=== PATIENT | male | born 1980 | race Caucasian/White ===

== ENCOUNTER 2021-12-11 08:03 | Emergency (ER) | payer BC, SELFPAY ==
[2021-12-11 08:05] VITALS: BP 167/97; PULSE 71; RESP 14; TEMP 36.9; O2SAT 100; BMI 29.9
--- NOTE | 2021-12-11 08:27 | EDS_ITS ---
HPI History of Present Illness Chief Complaint: General Illness Informant: patient Onset/Context/Timing Onset: Today Context: - (Awoke with symptoms) Timing: Continuous Quality: Loss of taste and smell Current Severity: Moderate Maximum Severity: Moderate Worsened by: Nothing Relieved by: Nothing Associated Symptoms Associated Symptoms: Panicked and felt short of breath transiently earlier Narrative Narrative: Patient presents with loss of taste and smell. He is unvaccinated against Covid. He is asymptomatic otherwise, but admits that 5 days ago, he had fevers, chills, headaches, myalgias, malaise. That lasted a couple days and resolved. He is healthy otherwise. PFSH PFS Medical History no medical history no medical history Home Medications cephalexin 500 mg PO Q6 #28 capsule 06/19/16 [Rx Last Taken Unknown] hydrocodone-acetaminophen 1 - 2 tab PO Q4H PRN PRN #20 tablet 06/19/16 [Rx Last Taken Unknown] Allergy/AdvReac Type Severity Reaction Status Date / Time No Known Allergies Allergy Verified 12/11/21 08:05 Social History Smoking Status: Current every day smoker ROS ROS ED Constitutional Constitutional ED: Denies chills or fever(s) Eyes Eyes: Denies change in vision or diplopia ENT ENT ED: Reports loss taste/smell; Denies rhinorrhea or sore throat Cardiovascular Cardiovascular: Denies chest pain or palpitations Respiratory/Chest Respiratory/Chest: Denies cough or dyspnea Gastrointestinal Gastrointestinal: Denies abdominal pain, diarrhea, nausea or vomiting Genitourinary Genitourinary ED: Denies dysuria or hematuria Musculoskeletal Musculoskeletal: Denies back pain or neck pain Integumentary Denies abscess or rash Neurologic Neurologic: Denies headache(s), paresthesias or weakness Psychiatric Psychiatric: Denies anxiety or suicidal thoughts EXAM Physical Exam Const Vital Signs: 12/11/21 08:05 Temperature 98.4 F Temperature Source Temporal Pulse Rate 71 Respiratory Rate 14 Blood Pressure 167/97 H Blood Pressure Mean 120 Pulse Ox 100 Oxygen Delivery Method Room Air Positive well nourished and well developed General Appearance ED: well developed and NAD HEENT Reports moist mucous membranes normocephalic and atraumatic Eyes PERRL and EOMs intact bilaterally Neck full ROM and supple Resp normal respiratory effort and clear to auscultation bilaterally Cardio regular rate, regular rhythm and no murmurs GI non-tender and non-distended Auscultation: normoactive bowel sounds Palpation: soft Back/Spine no CVA tenderness General Back: other FROM Extremity normal to inspection General Extremety ED: Negative for edema, pulses abnormal or tenderness General Extremity: Negative for edema or pulses abnormal Neuro oriented x3, CN's II-XII intact bilaterally and no sensory deficits noted Sensorium / Orientation: awake and alert Motor Exam: strength 5/5 throughout Skin no rashes or lesions noted and no wounds MDM MDM MDM Narrative Medical decision making narrative: Clinically this is all consistent with COVID- 19. The omicron variant is dominant right now, and has a higher likelihood of false negative rapid antigen testing. That was undergone here in the emergency department. It is positive. Patient was reassured, his oxygen levels are 100%, he does not have dyspnea with exertion. Given appropriate discharge instructions and reasons to return. Of note the patient's BMI is 30. This is a risk factor for worsening pulmonary involvement. Right now there is a shortage of the monoclonal antibody infusion sotrovimab and it is being allocated to people with higher risk than the general population, and this patient does not meet this criteria right now. Discharge Plan Triage Chief Complaint: General Illness ED Provider: Duncan Castillo Dx/Rx/DC Orders Clinical Impression: COVID-19 Instructions: Coronavirus Disease 2019 (COVID-19): Caring for Yourself or Others Prescriptions: No Action hydrocodone-acetaminophen 1 TABLET tablet 1 - 2 tab PO Q4H PRN PRN (Reason: Pain) Qty: 20 RF: 0 cephalexin 500 MG capsule 500 mg PO Q6 Qty: 28 RF: 0 Primary Care Provider: Donal Freeman Referrals: Jack De La O MD [NON-STAFF] - As Needed Activity Restrictions/Additional Instructions: Try to get a home portable pulse oximeter and closely watch your oxygen levels periodically. If you stay below 90% for more than a minute or so, and/or you are feeling like your breathing is getting worse, return to the emergency department for further evaluation. Disposition Disposition: Home, Self Care
== END 2021-12-11 09:24 | disposition home or self-care (01) ==
LOC: ED 08:47
PROVIDERS: Emergency Provider Emergency Medicine; PCP Family Medicine; Visit Provider Emergency Medicine
DX: U07.1 COVID-19 (principal); F17.200 Nicotine dependence, unspecified, uncomplicated
CPT/HCPCS: 87426; 99282

== ENCOUNTER → 2022-07-01 | Outpatient (CLI) | payer BC, SELFPAY ==
[2022-07-01 11:31] LABS: Free T3 3.1 pg/mL (2.18-3.98); T4 Free Direct 0.94 ng/dL (0.76-1.46)
[2022-07-02 17:07] LABS: Thyroid Peroxidase AB < 8 IU/mL (0-34)
[2022-07-03 14:58] LABS: Thyroglobulin Antibody < 1.0 IU/mL (0.0-0.9)
== END | disposition home or self-care (01) ==
LOC: LAB 10:09
PROVIDERS: PCP Family Medicine
DX: R79.89 Other specified abnormal findings of blood chemistry (principal)
CPT/HCPCS: 36415; 84439; 84481; 86376; 86800

== ENCOUNTER → 2023-08-04 | Outpatient (CLI) | payer BC, SELFPAY ==
[2023-08-04 10:50] LABS: Cholesterol 126 mg/dL (200); High Density Lipoprotein 39 mg/dL; Triglycerides 167 mg/dL; Very Low Density Lipoprotein 33 mg/dL (5-40)
== END | disposition home or self-care (01) ==
LOC: LAB 09:40
PROVIDERS: PCP Family Medicine
DX: E78.5 Hyperlipidemia, unspecified (principal); I10 Essential (primary) hypertension; I25.10 Atherosclerotic heart disease of native coronary artery without angina pectoris
CPT/HCPCS: 36415; 80061

== ENCOUNTER 2024-12-28 00:56 | Inpatient (IN) | payer BC, SELFPAY ==
[2024-12-28] VITALS (24 sets, daily range): BP systolic 103–176; BP diastolic 68–106; PULSE 55–92; RESP 12–18; TEMP 36.4–36.9; O2SAT 97–100; BMI 34.2
--- NOTE | 2024-12-28 01:24 | CT_ITS ---
PROCEDURE: ABDOMEN/PELVIS WITHOUT CONT REASON FOR EXAM: Flank pain. History of stones. Nausea, vomiting. TECHNIQUE: Abdomen and pelvis CT without intravenous contrast. 2D sagittal and coronal reformatted images were provided. COMPARISON: None. FINDINGS: Lung bases are clear. Coronary artery calcifications are present. There is diffuse hepatic steatosis. Gallbladder, spleen, pancreas, biliary system, and adrenal glands are unremarkable within the limits of a noncontrast exam. Abdominal aorta demonstrates a normal caliber. There is a 6.5 x 5 x 5.5 mm obstructing stone in the proximal right ureter resulting in mild right-sided proximal hydroureter and mild to moderate right-sided hydronephrosis. There is right perinephric and right periureteral stranding. No left renal or ureteral stones are identified. Urinary bladder is smoothly contoured. No colonic obstruction or pericolonic inflammatory changes are present. Appendix is unremarkable. Small bowel demonstrates a normal caliber. No free air or free fluid is identified. There is a small fat containing umbilical hernia. Evaluation of the osseous structures demonstrates no acute findings. Mild degenerative changes are present. CT/Abdomen/Pelvis without Cont IMPRESSION: 1. Obstructing stone in the proximal right ureter measuring 6.5 mm resulting in [id number] right-sided hydronephrosis and mild proximal hydroureter with right perinephric and periureteral stranding. 2. Hepatic steatosis. One or more dose reduction techniques were used (e.g., Automated exposure contr ol, adjustment of the mA and/or kV according to patient size, use of iterative reconstruction technique). Reading Location: [facility]
[2024-12-28] MEDS: Ketorolac 30 MG/ML Syringe IV (01:31)
[2024-12-28] MEDS: Ondansetron 4 MG/2 ML Vial IV ×2 (01:31→08:19)
[2024-12-28] MEDS: 0.9% Normal Saline (1000mL) 1,000 ML 999 ML IV (01:31)
--- NOTE | 2024-12-28 01:46 | EDS_ITS ---
HPI History of Present Illness Chief Complaint: Flank Pain Narrative Narrative: Patient is a 44-year-old male with past medical history of CAD status post stents, NC, hyperlipidemia, kidney stones who presents to the emergency department the chief complaint of right sided back pain and concern for kidney stone. States that has been going on for a while however has been progressively worsening prompting him to come here for the valuation management. He rates his pain 8 out of 10. Patient denies any history of smoking, drug use, alcohol use. Patient states that this feels like a kidney stone. [facility] Medical History Hyperlipidemia Myocardial infarct Home Medications ?Medication ?Instructions ?Recorded ?Last Taken ?Type aspirin 81 mg chewable tablet 1 tab PO DAILY 12/28/24 Unknown History atorvastatin 80 mg tablet 80 mg PO DAILY 12/28/24 Unkn own History losartan 25 mg tablet 12.5 mg PO DAILY 12/28/24 Un known History Allergy/AdvReac Type Severity Reaction Status Date / Time No Known Allergies Allergy Verified 12/28/24 00:58 Surgical History Stented coronary artery Social History Smoking Status: Former smoker ROS ROS ED ROS Narrative Constitutional: Denies any fevers, chills, headaches Eyes: Denies change in vision double vision blurry vision Cardiovascular: Denies chest pain or palpitations Respiratory: Denies coughing wheezing shortness of breath Abdomen: Denies abdominal pain nausea vomit diarrhea : Denies any painful urination, hematuria, polyuria Neurological: Denies any numbness, weakness, tingling Musculoskeletal: Complains of right sided back pain as noted above Skin: Denies any rashes or lesions EXAM Physical Exam Narrative Exam Narrative: General: Patient lying in bed rest comfortably did not appear to be in acute distress Head: Atraumatic, normocephalic Eyes: PERRL bilaterally, EOMI bilaterally, no conjunctival injection noted Neck: Soft, supple, trachea midline Cardiovascular: Regular rate and rhythm no murmurs gallops rubs noted Respiratory: Clear to auscultation bilaterally no rales rhonchi or wheezes noted Abdomen: Soft, nondistended, no tenderness to palpation, bowel sounds present x 4 Musculoskeletal: No CVA tenderness noted on exam no tenderness palpation midline of thoracic lumbar spine Extremities: +5/5 strength noted in the bilateral upper and lower extremities, radial pulses +2/4 in the bilateral extremities Neurological: Patient following commands knew that he was at [facility] there is 2024 Skin: Warm, dry, intact no rashes or lesions noted Const Vital Signs: 12/28/24 00:57 12/28/24 00:59 12/28/24 01:59 Temperature 98.5 F 98.5 F 98.5 F Temperature Source Oral Oral Oral Pulse Rate 86 72 73 Respiratory Rate 12 12 16 Blood Pressure 176/93 H 176/93 H 174/90 H Blood Pressure Mean 120 120 118 Pulse Ox 98 98 99 Oxygen Delivery Method Room Air Room Air Room Air MDM MDM MDM Narrative Medical decision making narrative: Patient is a 44-year-old male who presented to the emerged part with concern for a kidney stone. On the differential diagnose includes but not limited to UTI, pyelonephritis, nephrolithiasis, urolithiasis. Once workup is obtained reviewed he will be reevaluated. Patient be given IV fluids Toradol and Zofran. Patient's CBC was significant leukocytosis of 18,000, hemoglobin is 14.9, plate count noted to be normal at 402. Patient sodium normal 130, potassium normal 3.7, creatinine normal at 1.18. Patient's AST and ALT were 25 and 85 respectively, urinalysis showed occult blood, 25 leuks, negative nitrates 0 white blood cells with 1+ bacteria this will be sent for culture. Patient CT abdomen pelvis with IV contrast reviewed showed obstructing stone in the proximal right ureter measuring 6.5 mm resulting in mild to moderate right-sided hydronephrosis and mild proximal hydroureter ureter with right perinephric and periureteral stranding. Hepatic steatosis. Called discussed case with on-call urologist Dr. Rouse who states that the patient can be admitted to the medicine service and he will plan on taking the patient to the operating room tomorrow for stent placement. Will discuss case with hospitalist for admission. Patient was given a gram of Rocephin. Discussed case with hospitalist who accept patient for admission. Patient notified as well as significant other bedside they are agreeable this plan all question concerns answered at bedside. Lab Data Labs: Laboratory Results - last 24 hr 12/28/24 12/28/24 01:20 02:34 WBC 18.9 H RBC 5.08 Hgb 14.9 Hct 43.0 MCV 84.6 MCH 29.3 MCHC 34.7 RDW Std Deviation 40.3 RDW Coeff of Johnny 13.1 Plt Count 402 MPV 9.5 Immature Gran % (Auto) 0.500 Neut % (Auto) 84.3 H Lymph % (Auto) 9.7 L [place] % (Auto) 5.0 Eos % (Auto) 0.2 Baso % (Auto) 0.3 Absolute Neuts (auto) 15.9 H Absolute Lymphs (auto) 1.82 Nucleated RBC % 0 Sodium 138 Potassium 3.7 Chloride 104 Carbon Dioxide 22.0 Anion Gap 12 BUN 17 Creatinine 1.18 Estim Creat Clear Calc 103.36 Est GFR (MDRD) Af Amer 86 Est GFR (MDRD) Non-Af 71 BUN/Creatinine Ratio 14.4 Glucose 125 H Calcium 9.7 Total Bilirubin 0.40 AST 25 ALT 85 H Alkaline Phosphatase 182 H Total Protein 8.1 Albumin 4.5 Globulin 3.6 Albumin/Globulin Ratio 1.2 Urine Color Yellow Urine Clarity Clear Urine pH 6.0 Ur Specific [place] 1.025 Urine Protein 30 H Urine Glucose (UA) Normal Urine Ketones Negative Urine Occult Blood 250 H Urine Nitrite Negative Urine Bilirubin Negative Urine Urobilinogen Normal Ur Leukocyte Esterase 25 H Urine RBC 50-100 SEEN Urine WBC 0 SEEN Ur Squamous Epith Cells 0-5 SEEN Urine Bacteria 1+ Urine Mucus 0 SEEN Radiography Diagnostic Testing: Clinical Impression(s) from Imaging Studies Abdomen/Pelvis CT 12/28/24 01:24 IMPRESSION: 1. Obstructing stone in the proximal right ureter measuring 6.5 mm resulting in [id number] right-sided hydronephrosis and mild proximal hydroureter with right perinephric and periureteral stranding. 2. Hepatic steatosis. One or more dose reduction techniques were used (e.g., Automated exposure control, adjustment of the mA and/or kV according to patient size, use of iterative reconstruction technique). Reading Location: [facility] Discharge Plan Triage Chief Complaint: Flank Pain ED Provider: Ayden Vang Dx/Rx/DC Orders Clinical Impression: Hydronephrosis with renal and ureteral calculous obstruction Prescriptions: No Action atorvastatin 80 mg tablet 80 mg PO DAILY losartan 25 mg tablet 12.5 mg PO DAILY aspirin 81 mg tablet,chewable 1 tab PO DAILY Primary Care Provider: Jack De La O Referrals: Jack De La O MD [Primary Care Provider] - Print Language: Thai Disposition Disposition: Acute Care Hospital [facility]
[2024-12-28 02:22] LABS: Absolute Lymphocyte Count 1.82 X10^3/uL (0.83-4.51); Absolute Neutrophil Count 15.9 X10^3/uL (2.0-7.7); Basophil# 0.06 X10^3/uL; Basophil% 0.3 % (0-1); Eosinophil# 0.03 X10^3/uL; Eosinophils% 0.2 % (0-5); Hemoglobin 14.9 g/dL (13.0-16.5); Lymphocyte # 1.82 X10^3/ul (0.83-4.51); Lymphocyte % 9.7 % (19-41); Mean Corp Hgb Conc 34.7 g/dL (32-36); Mean Corpuscular Hgb 29.3 pg (27.0-32.0); Mean Corpuscular Volume 84.6 fL (80-94); Mean Platelet Vol. 9.5 fl (6.2-12.0); Monocyte# 0.95 X10^3/uL; NRBC Flagged by Analyzer 0 % (0-5); Neutrophil % 84.3 % (47-70); Platelet Count 402 K/mm3 (150-450); RBC Distribution Width CV 13.1 % (11.6-14.6); RBC Distribution Width SD 40.3 fl (35.1-43.9); Red Blood Count 5.08 M/mm3 (4.6-6.2); White Blood Count 18.9 K/mm3 (4.4-11.0)
[2024-12-28 02:38] LABS: Mucous, Urine 0 SEEN /hpf (<or=2+); White Blood Cells 0 SEEN /hpf (0-5)
[2024-12-28 02:40] LABS: Color, Urine Yellow (Yellow); Glucose, Dipstick Normal (Normal); Ketone-Dipstick Negative (Negative); Leukocyte Esterase-Dipstick 25 /ul (Negative); Nitrite-Dipstick Negative (Negative); Occult Blood-Urine 250 /ul (Negative); Protein-Dipstick 30 mg/dl (Negative); Specific Gravity, Urine 1.025 (1.002-1.030); Urine Bilirubin Dipstick Negative (Negative); Urine Clarity Clear (Clear); Urine Urobilinogen Normal (Normal)
[2024-12-28 02:40] LABS: ALB/GLOB Ratio 1.2 RATIO (0.9-2.4); AST(SGOT) 25 U/L (15-37); Alanine Aminotransfer ALT/SGPT 85 U/L (16-61); Albumin, Serum 4.5 g/dL (3.2-5.0); Alkaline Phosphatase 182 U/L (45-117); Anion Gap 12 (5-15); BUN 17 mg/dL (7-18); BUN/Creat Ratio 14.4 RATIO (10-20); Calcium,Total 9.7 mg/dL (8.5-10.1); Chloride 104 mmol/L (98-107); Creatinine, Serum 1.18 mg/dL (0.70-1.30); EST Glomerular Filtration Rate 71 mL/min (>60); Est Glom Filt Rate - Afr Amer 86 mL/min (>60); Estimated Creatinine Clearance 103.36 ml/min; Globulin 3.6 g/dL (2.2-4.2); Glucose 125 mg/dL (74-106); Potassium 3.7 mmol/L (3.5-5.1); Protein, Total 8.1 g/dL (6.4-8.2); Sodium Level 138 mmol/L (136-145)
[2024-12-28 02:59] LABS: Bacteria 1+ /hpf (None Seen); Red Blood Cells-Urine 50-100 SEEN /hpf (0-5); Squamous Epithelial Cells - UA 0-5 SEEN /hpf (0-5)
--- NOTE | 2024-12-28 03:42 | HP.PCM.HOS_ITS ---
[facility] - General General Date of Admission: 12/28/24 Date of Service: 12/28/24 Chief Complaint: Right Flank Pain. HPI Narrative CARROLL MALONE, is a 44 M with a past medical history of essential hypertension; on losartan, hyperlipidemia; on atorvastatin, obesity; with BMI of 34.3 this admission, CAD; s/p MO with subsequent stents on baby aspirin daily, history of COVID-19 (2021) and history of renal calculi who presents to [facility] ER complaining of Right flank pain. Mr. Malone reports his symptoms began approximately 2 hours prior to arrival with the abrupt-onset of severe, ~8/10 pain in his Right flank that radiated into his back with nothing seeming to make the pain better or worse. He admits his symptoms are similar to his previous kidney stones - but this is more intense. He denies associated fever, chills, changes in vision, chest pain, palpitations, heart racing, shortness of breath, cough, abdominal pain, nausea, vomiting, dysuria, hematuria or rash. In the ER he was noted to have CT evidence of an obstructing stone in the proximal Right ureter measuring ~6.5 mm resulting in [id number] Right-sided hydronephrosis and mild proximal hydroureter with Right perinephric and periureteral stranding with a corresponding urinalysis that revealed hematuria and small leukocyte esterase with no white blood cells but with Leukocytosis of 18.9 K present on admission. He was then diagnosed with suspected Right pyelonephritis with hydronephrosis and hydroureter due to ~6.5 mm proximal Right ureteral stone and he was then admitted to the general medical floor for ongoing care for stay that is expected to extend beyond 2 midnights with urology apprenticeship consultant contacted by the ER with plan for ureteral stent placement in a.m. with help appreciated in advance. [facility] Medical History (Updated 12/28/24 @ 04:[address] Gian Hyman, DO) Hyperlipidemia Myocardial infarct Home Medications ?Medication ?Instructions ?Recorded ?Last Taken ?Type aspirin 81 mg chewable tablet 1 tab PO DAILY 12/28/24 Unknown History atorvastatin 80 mg tablet 80 mg PO DAILY 12/28/24 Unkn own History losartan 25 mg tablet 12.5 mg PO DAILY 12/28/24 Un known History Allergy/AdvReac Type Severity Reaction Status Date / Time No Known Allergies Allergy Verified 12/28/24 00:58 Surgical History (Updated 12/28/24 @ 04:[address] Gian Hyman DO) Stented coronary artery Social History Smoking Status: Former smoker ROS ROS Narrative Review of Systems: Constitutional: Patient denies fever or chills. Eyes: Patient denies changes in vision or discharge from eyes. ENT: Patient denies runny nose, sore throat or ear pain. Resp: Patient denies shortness of breath or cough. CV: Patient denies chest pain, palpitations, heart racing or lower extremity edema. GI: Patient denies abdominal pain, nausea, vomiting, diarrhea or constipation. : Patient denies dysuria, hematuria or polyuria. MSK: Patient complains of right sided flank pain radiating into his back as per HPI. Skin: Patient denies rash, abscess, jaundice or wounds. Psych: Patient denies symptoms of uncontrolled depression or anxiety. Neuro: Patient denies headache, paresthesias or focal neurologic deficits. Allergy: Patient denies lip swelling, tongue swelling or urticaria. Hematology: Patient denies easy bleeding or easy bruisability. Endocrinology: Patient denies polyuria, polydipsia or polyphagia. 14 point review of systems otherwise negative save for positives noted above in HPI. Vital Signs Vital Signs Vital Signs: 12/28/24 00:57 12/28/24 00:59 12/28/24 01:59 Temperature 98.5 F 98.5 F 98.5 F Temperature Source Oral Oral Oral Pulse Rate 86 72 73 Respiratory Rate 12 12 16 Blood Pressure 176/93 H 176/93 H 174/90 H Blood Pressure Mean 120 120 118 Pulse Ox 98 98 99 Oxygen Delivery Method Room Air Room Air Room Air Weight Weight: 252 lb 13.923 oz Body Mass Index (BMI) 34.2 Physical Exam Const alert, oriented x3 and no apparent distress Constitutional Narrative: Obese and nontoxic in appearance General Appearance: cooperative HEENT normocephalic, head/scalp atraumatic, hearing grossly normal bilaterally and moist oral mucous membranes Eyes PERRL, EOMs intact bilaterally and conjunctivae normal Neck no lymphadenopathy and supple Resp normal respiratory effort, no retractions, no use of accessory muscles and clear to auscultation bilaterally Cardio regular rate and regular rhythm GI normal to inspection, nondistended, normoactive bowel sounds, soft to palpation, non-tender and non-distended Extremity normal to inspection, full ROM and no clubbing, cyanosis or edema Skin Skin Narrative: Patient has evidence of rash, abscess, jaundice or wounds. Neuro oriented x3, CN's II-XII intact bilaterally, moves all extremities and no focal motor deficits Sensorium / Orientation: awake, alert, oriented to person, oriented to place and oriented to time Speech: speech normal Psych affect normal Results Medical Records Data Attestation: I reviewed the patient's medical records Lab / Micro Data Attestation: I reviewed the patient's lab results. 12/28/24 01:20 12/28/24 01:20 Labs: Laboratory Results - last 24 hr 12/28/24 01:20: WBC 18.9 H, RBC 5.08, Hgb 14.9, Hct 43.0, MCV 84.6, MCH 29.3, MCHC 34.7, RDW Std Deviation 40.3, RDW Coeff of Johnny 13.1, Plt Count 402, MPV 9.5, Immature Gran % (Auto) 0.500, Neut % (Auto) 84.3 H, Lymph % (Auto) 9.7 L, [place] % (Auto) 5.0, Eos % (Auto) 0.2, Baso % (Auto) 0.3, Absolute Neuts (auto) 15.9 H, Absolute Lymphs (auto) 1.82, Nucleated RBC % 0, Sodium 138, Potassium 3.7, Chloride 104, Carbon Dioxide 22.0, Anion Gap 12, BUN 17, Creatinine 1.18, Estim Creat Clear Calc 103.36, Est GFR (MDRD) Af Amer 86, Est GFR (MDRD) Non-Af 71, BUN/Creatinine Ratio 14.4, Glucose 125 H, Calcium 9.7, Total Bilirubin 0.40, AST 25, ALT 85 H, Alkaline Phosphatase 182 H, Total Protein 8.1, Albumin 4.5, Globulin 3.6, Albumin/Globulin Ratio 1.2 12/28/24 02:34: Urine Color Yellow, Urine Clarity Clear, Urine pH 6.0, Ur Specific [place] 1.025, Urine Protein 30 H, Urine Glucose (UA) Normal, Urine Ketones Negative, Urine Occult Blood 250 H, Urine Nitrite Negative, Urine Bilirubin Negative, Urine Urobilinogen Normal, Ur Leukocyte Esterase 25 H, Urine RBC 50-100 SEEN, Urine WBC 0 SEEN, Ur Squamous Epith Cells 0-5 SEEN, Urine Bacteria 1+, Urine Mucus 0 SEEN Imaging Radiology Impression Abdomen/Pelvis CT 12/28/24 01:24 IMPRESSION: 1. Obstructing stone in the proximal right ureter measuring 6.5 mm resulting in [id number]-[id number] right-sided hydronephrosis and mild proximal hydroureter with right perinephric and periureteral stranding. 2. Hepatic steatosis. One or more dose reduction techniques were used (e.g., Automated exposure control, adjustment of the mA and/or kV according to patient size, use of iterative reconstruction technique). Reading Location: [facility] Assessment & Plan Assessment/Plan (1) Hydronephrosis with renal and ureteral calculous obstruction: (2) Pyelonephritis of right kidney: (3) Leukocytosis: QUALIFIERS: Leukocytosis type: unspecified Qualified Code(s): D 72.829 - Elevated white blood cell count, unspecified (4) Stented coronary artery: (5) Obesity (BMI 30.0-34.9): (6) Essential hypertension: PLAN: Plan 1. CT evidence of an obstructing stone in the proximal Right ureter measuring ~6.5 mm resulting in vgxy-[id number] Right-sided hydronephrosis and mild proximal hydroureter with Right perinephric and periureteral stranding with a corresponding urinalysis that revealed hematuria and small leukocyte esterase with no white blood cells but with Leukocytosis of 18.9 K present on admission. He was then diagnosed with suspected Right pyelonephritis with hydronephrosis and hydroureter due to ~6.5 mm proximal Right ureteral stone in the setting of previously known renal calculi - Admit to general medical floor. Continue empiric IV ceftriaxone begun in the ER and await culture and sensitivity data. Give acetaminophen as needed for evrx-al-mifjwhdl (level 1-5/10) pain or fever. Give morphine IV as needed for severe (level 6-10/10) pain. Give ondansetron IV as needed for nausea and vomiting. Finally, urologist on-call was contacted by ER physician with plan for ureteral stent placement in a.m. with help appreciated in advance. 2. CAD; s/p MO with subsequent stents on baby aspirin daily complicating #1 - Restart BASA after urologic procedure. 3. Obesity; with BMI of 34.3 this admission compounding #1 & #2 - Weight loss will be recommended. Check TSH. This complicates his case and may hamper recovery. 4. Essential Hypertension; on losartan - Maintain on losartan as previous plus give as needed hydralazine IV for systolic blood pressure greater than 160 mmHg. 5. Hyperlipidemia; on atorvastatin - Resume statin after urologic procedure. 6. History of COVID-19 (2021) - Noted. 7. DVT prophylaxis - SCD's only with impending urologic procedure. Total time: Approximately (but not less than) 75 minutes. Charges/Coding Visit Charges Inpatient E&M: 94141 Init Hosp L2
[2024-12-28] MEDS: Ceftriaxone 1 GM/50 ML BAG IV (04:48)
[2024-12-28] MEDS: 0.9% Normal Saline (1000mL) 1,000 ML 75 ML IV (04:48)
--- NOTE | 2024-12-28 07:35 | PCM.CONS.U ---
Assessment & Plan Assessment/Plan (1) Pyelonephritis of right kidney: (2) Hydronephrosis with renal and ureteral calculous obstruction: PLAN: 44-year-old male with an obstructing stone in the proximal right ureter white blood count is elevated some chills but no fevers plan for cystoscopy stent placement today in the operating room. HPI Consult Data Date of Consult: 12/28/24 HPI Narrative Reason for Consultation: Right kidney stone HPI Narrative: CARROLL AMAYA, is a 44 M who presents to the emergency room with severe right flank pain chills white blood count is 18,000, severe intractable pain. Patient is can be admitted for pain control plan to take the patient to surgery today for cystoscopy and right stent placement unblock the kidney and clear out any infection. I think given the presentation I do not think it is safe to proceed with any laser procedures until you get his white count normal etc. Patient was discussed the plan he was agreeable with this keep him n.p.o. and will plan for cystoscopy stent placement today. [facility] Medical History Hyperlipidemia Myocardial infarct Home Medications ?Medication ?Instructions ?Recorded ?Last Taken ?Type aspirin 81 mg chewable tablet 1 tab PO DAILY 12/28/24 Unknown History atorvastatin 80 mg tablet 80 mg PO DAILY 12/28/24 Unknown History losartan 25 mg tablet 12.5 mg PO DAILY 12/28/24 Unknown History Allergy/AdvReac Type Severity Reaction Status Date / Time No Known Allergies Allergy Verified 12/28/24 00:58 Surgical History Stented coronary artery Social History Smoking Status: Former smoker ROS Constitutional Constitutional: Denies malaise Eyes Eyes: Denies blurry vision or change in vision ENT HEENT: Reports none Cardiovascular Cardiovascular: Denies chest pain or palpitations Respiratory/Chest Respiratory/Chest: Denies cough or shortness of breath with exertion Gastrointestinal Gastrointestinal: Denies abdominal pain, constipation or diarrhea Musculoskeletal Musculoskeletal: Denies back pain, joint stiffness or joint swelling Integumentary Integumentary: Denies dry skin, jaundice, lesions or rash Neurologic Neurologic: Denies confusion, syncope or weakness Psychiatric Psychiatric: Reports none; Denies anxiety or depression Endocrine Endocrinology: Denies excessive sweating, fatigue or flushing Hematologic/Lymphatic Hematologic/Lymphatic: Denies anemia, easy bleeding or easy bruising Physical Exam Const alert and oriented x3 General Appearance: cooperative HEENT normocephalic, head/scalp atraumatic, EAC's normal and TM's normal bilaterally Eyes PERRL and EOMs intact bilaterally Pupil: sluggish Neck no lymphadenopathy, supple and no JVD General: trachea midline Lymph Lymphatic: no lymphadenopathy noted, lymphedema and lymphadenopathy Resp normal respiratory effort, normal air movement and clear to auscultation bilaterally Cardio regular rate, regular rhythm and peripheral pulses 2+ throughout GI soft to palpation, non-tender and non-distended Extremity normal capillary refill and no clubbing, cyanosis or edema General Extremity: no tenderness to palpation of joints or extremities Skin no rashes or lesions noted General Skin Exam: turgor normal Lesions: no lesions Rashes: no rashes Neuro CN's II-XII intact bilaterally Speech: speech normal Motor Exam: strength 5/5 throughout; Negative for general weakness Psych thought process normal, cooperative and affect normal Appearance: appropriate Lab / Micro Data 12/28/24 01:20 12/28/24 01:20 Labs: Laboratory Results - last 24 hr 12/28/24 01:20: WBC 18.9 H, RBC 5.08, Hgb 14.9, Hct 43.0, MCV 84.6, MCH 29.3, MCHC 34.7, RDW Std Deviation 40.3, RDW Coeff of Johnny 13.1, Plt Count 402, MPV 9.5, Immature Gran % (Auto) 0.500, Neut % (Auto) 84.3 H, Lymph % (Auto) 9.7 L, [place] % (Auto) 5.0, Eos % (Auto) 0.2, Baso % (Auto) 0.3, Absolute Neuts (auto) 15.9 H, Absolute Lymphs (auto) 1.82, Nucleated RBC % 0, Sodium 138, Potassium 3.7, Chloride 104, Carbon Dioxide 22.0, Anion Gap 12, BUN 17, Creatinine 1.18, Estim Creat Clear Calc 103.36, Est GFR (MDRD) Af Amer 86, Est GFR (MDRD) Non-Af 71, BUN/Creatinine Ratio 14.4, Glucose 125 H, Calcium 9.7, Total Bilirubin 0.40, AST 25, ALT 85 H, Alkaline Phosphatase 182 H, Total Protein 8.1, Albumin 4.5, Globulin 3.6, Albumin/Globulin Ratio 1.2, TSH 1.550 12/28/24 02:34: Urine Color Yellow, Urine Clarity Clear, Urine pH 6.0, Ur Specific [place] 1.025, Urine Protein 30 H, Urine Glucose (UA) Normal, Urine Ketones Negative, Urine Occult Blood 250 H, Urine Nitrite Negative, Urine Bilirubin Negative, Urine Urobilinogen Normal, Ur Leukocyte Esterase 25 H, Urine RBC 50-100 SEEN, Urine WBC 0 SEEN, Ur Squamous Epith Cells 0-5 SEEN, Urine Bacteria 1+, Urine Mucus 0 SEEN Imaging Radiology Impression Abdomen/Pelvis CT 12/28/24 01:24 IMPRESSION: 1. Obstructing stone in the proximal right ureter measuring 6.5 mm resulting in [id number] right-sided hydronephrosis and mild proximal hydroureter with right perinephric and periureteral stranding. 2. Hepatic steatosis. One or more dose reduction techniques were used (e.g., Automated exposure control, adjustment of the mA and/or kV according to patient size, use of iterative reconstruction technique). Reading Location: [facility]
[2024-12-28] MEDS: Morphine 2 MG/ML Syringe IV (08:20)
[2024-12-28] MEDS: hydrALAZINE 20 MG/ML Vial 5 MG IV ×2 (08:24→18:54)
--- NOTE | 2024-12-28 10:16 | EKG12_ITS ---
Test Reason : P Blood Pressure : */* mmHG Vent. Rate : 75 BPM Atrial Rate : 75 BPM P-R Int : 144 ms QRS Dur : 88 ms QT Int : 372 ms P-R-T Axes : 62 24 26 degrees QTcB Int : 415 ms Normal sinus rhythm with sinus arrhythmia Normal ECG No previous ECGs available Confirmed by Reymundo Khalil ([id number]), assignment desk editor KIMBERLEY DIAZ ([id number]) on 12/30/2024 8:01:29 AM Referred By: Confirmed By: Reymundo Khalil
--- NOTE | 2024-12-28 11:51 | PCM.PRE.AN2 ---
ASA Classification* ASA Classification ASA Classification: 3 Assessment & Plan Anesthesia* Anesthesia Assessment Anesthesia Assessment: Discussed sedation and/or anesthesia options, risks, benefits, and alternatives with patient/parents/legal guardian/POA. Questions invited. The patient/parents/legal guardian/POA seems to understand and agrees to proceed with anesthesia plan. Reviewed the physical assessment, medical history, allergy history and patient home medications list prior to surgery/procedure/anesthetic and documented any changes. Performed airway and anesthesia risk assessments. Anesthesia Type Anesthesia Type: MAC History Source History Obtained from:: Patient and Chart Anesthesia Focused Assessment* Temperature: 98.4 F Pulse Rate: 79 Blood Pressure: 137/77 Respiratory Rate: 16 Pulse Ox: 98 Oxygen Delivery Method: Room Air Airway Assessment Mouth opens: >3 cm Mallampati Score: II Teeth Condition: Caps/Crowns (Patient has a couple of crowns. They are tight.) and Missing (1 missing tooth right upper molar.) Neck Range of motion (ROM): Limited ROM (Somewhat decreased extension) Focused Labs Anesthesia Preop lab: CBC WBC 18.9 K/mm3 (4.4-11.0) H 12/28/24 01:20 12/28/24 RBC 5.08 M/mm3 (4.6-6.2) 12/28/24 01:20 12/28/24 Hgb 14.9 g/dL (13.0-16.5) 12/28/24 01:20 12/28/24 Hct 43.0 % (40-54) 12/28/24 01:20 12/28/24 Plt Count 402 K/mm3 (150-450) 12/28/24 01:20 12/28/24 CHEMISTRY Potassium 3.7 mmol/L (3.5-5.1) 12/28/24 01:20 12/28/24 Sodium 138 mmol/L (136-145) 12/28/24 01:20 12/28/24 BUN 17 mg/dL (7-18) 12/28/24 01:20 12/28/24 Creatinine 1.18 mg/dL (0.70-1.30) 12/28/24 01:20 12/28/24 Glucose 125 mg/dL (74-106) H 12/28/24 01:20 12/28/24 TSH 1.550 uIU/mL (0.358-3.740) 12/28/24 01:20 12/28/24 COAG Pre-Assessment Diagnosis/Proposed Procedure Planned Operative Procedure(s): Cystoscopy and insertion of a stent on the right side. Anesthesia History Anesthesia History - supervisor smoke control: Anesthesia History - supervisor smoke control Hx Hospitalization Any Problems With Anesthesia unknown 12/28/24 10:02 Cholinesterase deficiency No 12/28/24 10:02 You/Your Family Experience No 12/28/24 10:02 fever (hyperthermia) with Relationship Recent Exposure to Contagious No 12/28/24 10:02 Disease Does patient have nerve No 12/28/24 10:02 stimulator Patient instructed to have No 12/28/24 10:02 device shut off --Does patient have Pacemaker No 12/28/24 10:02 or ICD? When Was Last Pacemaker Check QUESTION #4 FULL TEXT: You/Your Family Experience fever (hyperthermia) with Anesthesia Last Oral Intake Last Oral intake: Last Oral Intake NPO since 20:00 12/28/24 10:02 Meds taken in AM with sips of No 12/28/24 10:02 water? Meds patient instructed to take am of surgery PONV PONV - supervisor smoke control: PONV - supervisor smoke control Female HX of Motion Sickness HX of N/V After Surgery Non-Smoker Duration of Surgery greater than 60 minutes Number of Risk Factors PONV Score Height & Weight Height & Weight: Anesthesia: Height & Weight Height 6 ft 12/28/24 10:02 Weight: 114.7 kg 12/28/24 10:02 Body Mass Index (BMI) 34.2 12/28/24 10:02 Respiratory Assessment Respiratory Assessment - supervisor smoke control: Respiratory Tract Infection Hx - supervisor smoke control Hx Respiratory Tract Infection No 12/28/24 10:02 STOP Sleep Apnea STOP Sleep Apnea - supervisor smoke control: STOP Sleep Apnea - supervisor smoke control Hx Hypertension Yes 12/28/24 07:45 Hx Sleep Apnea No 12/28/24 07:45 CPAP BIPAP Do you snore loudly (louder No 12/28/24 07:45 than talking or can be heard Do you often feel tired/ No 12/28/24 07:45 fatigued/ sleepy during daytime? Has anyone observed you stop No 12/28/24 07:45 breathing during sleep? STOP Results Negative 12/28/24 07:45 QUESTION #5 FULL TEXT : Do you snore loudly (louder than talking or can be heard through closed doors)? Tobacco Use History Tobacco Use History - supervisor smoke control: Tobacco Use History - supervisor smoke control Tobacco Use Smoking Status Former smoker 12/28/24 07:45 Hx Tobacco Use Yes 12/28/24 07:45 Years Smoking Packs Smoked per Day Smoking Cessation Date was Yes - quit smoking within 15 12/28/24 07:45 within the last 15 years years Hx Smoking Cessation Date 01/31/22 12/28/24 07:45 Hx Smoking Cessation Counseling Hematologic Medial History Hematologic Hx - supervisor smoke control: Hematologic Medical Hx - process architect Hx of Blood Transfusion No 12/28/24 07:45 Hx of Transfusion in last 3 No 12/28/24 07:45 Months Date of Last Transfusion (if within last 3 months) Ever experience any problems No 12/28/24 07:45 with transfusion(s)? Specify any problems Hx of Preganancy in last 3 N/A 12/28/24 07:45 Months Nurse Filling Out Transfusion AHAGGERTY 12/28/24 07:45 & Questions: Date: 12/28/24 12/28/24 07:45 Time: 07:58 12/28/24 07:45 Patient unable to answer at this time (ie. confused, unrespo /Reproduction History /Reproductive History - supervisor smoke control: /Reproductive Hx- supervisor smoke control Hx Now No 12/28/24 10:02 Gestational Age (in weeks): EDC: Hx Hx Para Hx Section SAB No 12/28/24 10:02 Active Medications Active Medications: Current Medications Generic Name Dose Route Start Last Admin Trade Name Freq PRN Reason Stop Dose Admin Acetaminophen 650 mg 12/28/24 07:42 Acetaminophen 325 Mg Tablet PO Q6H PRN PRN Pain 1-5/10 or Fever Al Hydroxide/Mg Hydroxide 30 ml 12/28/24 07:42 Mag Hydrox/Al Hydrox/Simeth 30 Ml Udc PO Q6H PRN PRN Gastric Burning Hydralazine HCl 5 mg 12/28/24 07:42 12/28/24 08:24 Hydralazine 20 Mg/Ml Vial IV 5 mg Q8H PRN PRN Administration SBP GREATER THAN 160 Protocol Sodium Chloride 1,000 mls @ 100 mls/hr 12/28/24 04:14 12/28/24 04:48 IV 12/28/24 15:37 75 mls/hr .Q10H NEHEMIAS Administration Protocol Ceftriaxone Sodium 1 gm in 50 mls @ 100 mls/hr 12/29/24 10:00 Rocephin IV Q24 NEHEMIAS Cefazolin Sodium 2 gm/ N/A 20 mls @ 400 mls/hr 12/28/24 12:00 IV 12/28/24 12:02 PREOP ONE Ketorolac Tromethamine 30 mg 12/28/24 09:54 Ketorolac 30 Mg/Ml Syringe IV 01/02/25 09:54 Q6H PRN PRN Pain Score 1-10 Melatonin 3 mg 12/28/24 07:42 Melatonin 3 Mg Tablet PO QHS PRN PRN INSOMNIA Morphine Sulfate 2 mg 12/28/24 07:42 12/28/24 08:20 Morphine 2 Mg/Ml Syringe IV 2 mg Q4H PRN PRN Administration Pain Score 6-10 Ondansetron HCl 4 mg 12/28/24 07:42 12/28/24 08:19 Ondansetron 4 Mg/2 Ml Vial IV 4 mg Q6H PRN PRN Administration NAUSEA/VOMITING Promethazine HCl 25 mg 12/28/24 07:42 Promethazine 25 Mg/Ml Syringe IM Q6H PRN PRN Breakthrough nausea/vomiting Sodium Chloride 10 - 40 ml 12/28/24 07:56 0.9% Saline Lock 10 Ml Syringe IV UD PRN SALINE FLUSH PFSH Medical History Kidney stones Former smoker GERD (gastroesophageal reflux disease) Hyperlipidemia Myocardial infarct Home Medications ?Medication ?Instructions ?Recorded ?Last Taken ?Type aspirin 81 mg chewable tablet 1 tab PO DAILY 12/28/24 Unknown History atorvastatin 80 mg tablet 80 mg PO DAILY 12/28/24 Unknown History losartan 25 mg tablet 12.5 mg PO DAILY 12/28/24 Unknown History Allergy/AdvReac Type Severity Reaction Status Date / Time No Known Allergies Allergy Verified 12/28/24 00:58 Surgical History Stented coronary artery Social History Smoking Status: Former smoker Review of Systems (Anesthesia) ROS Narrative System reviewed and no additional complaints, except as documented.
[2024-12-28] MEDS: Cefazolin 2 GM in Syringe IV (12:04)
--- NOTE | 2024-12-28 12:15 | RAD_ITS ---
PROCEDURE: O.R. FLUORO FOR C-ARM REASON FOR EXAM: Cystoscopy with stent placement. TECHNIQUE: Intraoperative fluoroscopy was performed, along with a solitary fluoroscopic image. COMPARISON: None. RAD/O.R. Fluoro for C-Arm IMPRESSION: Intraoperative fluoroscopy was performed. Additionally, a solitary fluoroscopi c image was obtained, showing the superior portion ureteral stent. Reading Location: [id number]
--- NOTE | 2024-12-28 12:26 | DCINST_ITS ---
Discharge Instructions Diet Discharge Diet: No restrictions DC O2, CPAP, BIPAP needs Home O2 Discharge instructions: No Dressing / Incision Discharge Activity: Return to Normal Activity and May Not Drive (while taking narcotic pain medications.) Dressing / Incision Call your doctor if you observe: Fever of 101 or Higher Follow Up Care Please Follow Up With: Lew Rouse MD When: Call [phone] Test Results: Test results from this visit will be discussed in further detail at your follow- up appointment, if applicable. Discharge Plan Admission Admit Date/Time: 12/28/24 04:08 Attending Provider: Tonio Manzanares Primary Care Provider: Jack De La O Consulting Providers: Lew Rouse; Gian Hyman Discharge Orders/Prescriptions Prescriptions: No Action atorvastatin 80 mg tablet 80 mg PO DAILY losartan 25 mg tablet 12.5 mg PO DAILY aspirin 81 mg tablet,chewable 1 tab PO DAILY Referrals / Follow Up: Jack De La O MD [Primary Care Provider] -
--- NOTE | 2024-12-28 12:27 | PCM.OPRPT ---
Operative Report (Standard) Operative Information Date of Procedure: 12/28/24 Pre-Operative Diagnosis: Obstructing right ureteral calculus Post-Operative Diagnosis: The same Surgery/Procedure Performed: Cystoscopy and right stent placement retrogrades quencher operator: No Type of Anesthesia: General RN Documented Start/Stop Times: Operation Date: 12/28/24 12:30 Case Time Into Pre-Op 12/28/24 11:06 Out of Pre-Op 12/28/24 11:56 Anesthesia Start 12/28/24 12:04 Into Room 12/28/24 12:04 Procedure Start 12/28/24 12:22 Procedure End 12/28/24 12:25 Procedure Start Time: 12: Procedure Stop Time: 12:27 Select all DRAINS/GRAFTS/IMPLANTS that apply: Drains Drain details: right stent Estimated Blood Loss: 0 Specimen collected: No Description of surgery: Patient was taken back to the operating room after induction of general anesthesia, the patient was placed in dorsolithotomy position. The urethra and genitals were prepped and draped in usual sterile fashion. Using a 21 Pakistani rigid cystourethroscope the entire length of the urethra was normal then went into the bladder. Identified the trigone the left and right ureteral orifice. I then cannulated the right ureteral orifice and advanced a wire up into the kidney. I then backloaded a 5 Pakistani open ended catheter over the wire and injected contrast to delineate the anatomy. After the retrograde was performed I then used fluoroscopic images and guidance to advanced a wire up into the kidney and over the 0.038 glidewire I advanced a 6 Pakistani by 26 cm double pigtail stent. I then pulled the 0.038 Glidewire off and the stent coiled in the kidney bladder good position. The bladder was then drained. We confirmed the position of the stent by fluoroscopy. Patient anesthetic was reversed and was taken back to the PACU in good condition. Surgical Findings: stent placed Complications Complications: No Admit VTE Documentation VTE Present on Admission: No VTE Mechan Device Prophylaxis: SCD's VTE Pharm Prophylaxis ordered?: No
--- NOTE | 2024-12-28 12:37 | PCM.POST.ANE ---
Anesthesia: Postop Eval I Current Vital Signs Temperature: 98.5 F Pulse Rate: 73 Blood Pressure: 108/70 Respiratory Rate: 18 Pulse Ox: 100 Oxygen Delivery Method: Venturi Mask Assessment Airway patent: Yes Spontaneous unlabored respirations: Yes Mental status: Asleep nausea: No Vomiting: No Anesthesia Complication: No Fluid Hydration Crystalloid volume administer (ml): 400 Total IV fluid infused: 400 Progress Note Anesthesia document: Postop Eval 1 completed: Yes
--- NOTE | 2024-12-28 13:23 | POSTOPAN2_ITS ---
Anesthesia Postop Eval I Sum Postop Eval Completion status Anesthesia document: Postop Eval 1 completed: Yes Anesthesia Postop Eval I Summary Anesthesia Postop Eval I Summary: Anesthesia Postop Eval I: Assessment Summary Airway patent Yes 12/28/24 12:38 PUBLISHING DIRECTOR.APAT Spontaneous unlabored Yes 12/28/24 12:38 PUBLISHING DIRECTOR.APAT respirations Mental status Asleep 12/28/24 12:38 PUBLISHING DIRECTOR.APAT nausea No 12/28/24 12:38 PUBLISHING DIRECTOR.APAT Vomiting No 12/28/24 12:38 PUBLISHING DIRECTOR.APAT Anesthesia Postop Eval I: Fluid Summary Crystalloid volume administer 400 12/28/24 12:38 PUBLISHING DIRECTOR.APAT (ml) Colloids volume administered ( ml) Blood Product volume administered (ml) Total IV fluid infused 400 12/28/24 12:38 PUBLISHING DIRECTOR.APAT Anesthesia Postop Eval I: Summary Notes Anesthesia Complication No 12/28/24 12:38 PUBLISHING DIRECTOR.APAT Anesthesia Complication Comment: Post-operative progress note Anesthesia: Postop Eval II Evaluation Mental status: Awake and Calm Pain Level: 1 nausea: No Vomiting: No Complications Anesthesia Complication: No
--- NOTE | 2024-12-28 13:23 | PCM.POSTANE2 ---
Anesthesia Postop Eval I Sum Postop Eval Completion status Anesthesia document: Postop Eval 1 completed: Yes Anesthesia Postop Eval I Summary Anesthesia Postop Eval I Summary: Anesthesia Postop Eval I: Assessment Summary Airway patent Yes 12/28/24 12:38 POWER SWITCHBOARD OPERATOR.APAT Spontaneous unlabored Yes 12/28/24 12:38 POWER SWITCHBOARD OPERATOR.APAT respirations Mental status Asleep 12/28/24 12:38 POWER SWITCHBOARD OPERATOR.APAT nausea No 12/28/24 12:38 POWER SWITCHBOARD OPERATOR.APAT Vomiting No 12/28/24 12:38 POWER SWITCHBOARD OPERATOR.APAT Anesthesia Postop Eval I: Fluid Summary Crystalloid volume administer 400 12/28/24 12:38 POWER SWITCHBOARD OPERATOR.APAT (ml) Colloids volume administered ( ml) Blood Product volume administered (ml) Total IV fluid infused 400 12/28/24 12:38 POWER SWITCHBOARD OPERATOR.APAT Anesthesia Postop Eval I: Summary Notes Anesthesia Complication No 12/28/24 12:38 POWER SWITCHBOARD OPERATOR.APAT Anesthesia Complication Comment: Post-operative progress note Anesthesia: Postop Eval II Evaluation Mental status: Awake and Calm Pain Level: 1 nausea: No Vomiting: No Complications Anesthesia Complication: No
--- NOTE | 2024-12-28 15:40 | CASEMGMT ---
CORRIE BARBOSA Assessment: Face to Face with pt for initial transition planning/care coordination assessment. RN CHELSEY introduced self and role at [facility], pt voices understanding and consents to assessment. Pt is A&O x4 and answers all questions appropriately at this time. Pt lying in bed in no distress, pt at bedside. Pt agreeable to DC planning assessment with present. Care providers, pharmacy, and demographics verified/updated. Strata: not populated at this time. Admitting Dx: RT Pylenonephritis W/RT Ureteral stone. PCP: Jairon Specialists: Chema Second Vp Hr Assessment Preferred Pharmacy: [facility] Insurance: [place] Prescription Benefit: yes LNOK: , Annie Living Arrangements: Pt lives with and daughter ADLs: Pt is I with ADLs and IADLs. Transportation: Pt drives self and denies concerns with transportation. DME: Denies HHC/SNF: Denies Hx of. Pt states no concerns with going home at time of dc. Pt states no further concerns/needs. CM to follow. Advised pt to ask CM if any further question/concerns/needs arise, voices understanding. Pt Goal: Home Plan: Home, follow for safe DC plan. Jas DENTON CM
[2024-12-28] MEDS: 0.9% Saline Lock 10 ML Syringe IV (18:55)
[2024-12-28] MEDS: amLODIPine 5 MG Tablet PO (22:43)
[2024-12-28] MEDS: MELATONIN 3 MG TABLET PO (22:49)
[2024-12-28] MEDS: Acetaminophen 325 MG Tablet 650 MG PO (22:49)
[2024-12-29 03:30] VITALS: BP 145/80; PULSE 78; RESP 16; TEMP 36.3; O2SAT 98
[2024-12-29 05:54] LABS: Absolute Lymphocyte Count 1.45 X10^3/uL (0.83-4.51); Absolute Neutrophil Count 9.5 X10^3/uL (2.0-7.7); Basophil# 0.01 X10^3/uL; Basophil% 0.1 % (0-1); Eosinophil# 0.01 X10^3/uL; Eosinophils% 0.1 % (0-5); Hematocrit 41.2 % (40-54); Hemoglobin 13.6 g/dL (13.0-16.5); Lymphocyte # 1.45 X10^3/ul (0.83-4.51); Lymphocyte % 12.3 % (19-41); Mean Corpuscular Hgb 28.5 pg (27.0-32.0); Mean Corpuscular Volume 86.2 fL (80-94); Mean Platelet Vol. 9.2 fl (6.2-12.0); Monocyte# 0.75 X10^3/uL; Monocyte% 6.4 % (0-10); NRBC Flagged by Analyzer 0 % (0-5); Neutrophil % 80.6 % (47-70); Platelet Count 344 K/mm3 (150-450); RBC Distribution Width CV 13.2 % (11.6-14.6); RBC Distribution Width SD 41.3 fl (35.1-43.9); Red Blood Count 4.78 M/mm3 (4.6-6.2); White Blood Count 11.8 K/mm3 (4.4-11.0)
[2024-12-29 06:13] LABS: ALB/GLOB Ratio 1.3 RATIO (0.9-2.4); AST(SGOT) 20 U/L (15-37); Alanine Aminotransfer ALT/SGPT 56 U/L (16-61); Albumin, Serum 3.8 g/dL (3.2-5.0); Alkaline Phosphatase 172 U/L (45-117); Anion Gap 9 (5-15); BUN 18 mg/dL (7-18); BUN/Creat Ratio 16.4 RATIO (10-20); Calcium,Total 9.2 mg/dL (8.5-10.1); Chloride 106 mmol/L (98-107); EST Glomerular Filtration Rate 77 mL/min (>60); Est Glom Filt Rate - Afr Amer 93 mL/min (>60); Estimated Creatinine Clearance 110.88 ml/min; Glucose 125 mg/dL (74-106); Magnesium 2.1 mg/dL (1.6-2.6); Phosphorus 4.2 mg/dL (2.5-4.9); Potassium 4.1 mmol/L (3.5-5.1); Protein, Total 6.8 g/dL (6.4-8.2); Sodium Level 140 mmol/L (136-145)
[2024-12-29 07:52] VITALS: BP 166/101; PULSE 63; RESP 18; TEMP 36.5; O2SAT 97; BMI 33.4
[2024-12-29 08:17] VITALS: BP 166/101; PULSE 63
[2024-12-29] MEDS: hydrALAZINE 20 MG/ML Vial 5 MG IV (08:17)
[2024-12-29] MEDS: Ceftriaxone 1 GM/50 ML BAG IV (08:20)
[2024-12-29] MEDS: 0.9% Saline Lock 10 ML Syringe IV ×2 (08:21→10:11)
[2024-12-29] MEDS: Losartan Potassium 25 MG Tablet PO (10:10)
[2024-12-29] MEDS: amLODIPine 5 MG Tablet PO (10:10)
[2024-12-29 10:19] VITALS: BP 146/98; PULSE 85
[2024-12-29 12:58] VITALS: BP 129/81; PULSE 75; RESP 16; TEMP 36.7; O2SAT 97
--- NOTE | 2024-12-29 13:44 | DCINST_ITS ---
Discharge Instructions Diet Discharge Diet: No restrictions DC O2, CPAP, BIPAP needs Home O2 Discharge instructions: No Dressing / Incision Discharge Activity: Return to Normal Activity Dressing / Incision Call your doctor if you observe: Fever of 101 or Higher, Shortness of breath, Dizziness, Fainting spells, Swelling in the ankles, Chest pain and Increased palpitations (irregular heartbeat) Follow Up Care Please Follow Up With: Lew Rouse MD Test Results: Test results from this visit will be discussed in further detail at your follow- up appointment, if applicable. Discharge Plan Admission Admit Date/Time: 12/28/24 04:08 Attending Provider: Tonio Manzanares Primary Care Provider: Jack De La O Consulting Providers: Lew Rouse; Gian Hyman Discharge Orders/Prescriptions Prescriptions: New amlodipine 5 mg Tablet 5 mg PO DAILY 30 Days Qty: 30 0RF Continued atorvastatin 80 mg tablet 80 mg PO DAILY aspirin 81 mg tablet,chewable 1 tab PO DAILY Changed losartan 25 mg tablet 25 mg PO DAILY Qty: 30 0RF Referrals / Follow Up: Lew Rouse MD [Med Staff - Active Staff] - Within 2 Weeks Jack De La O MD [Primary Care Provider] - Within 1 Week Disposition Disposition (needs filled in before D/C Order can be placed): Home, Self Care
--- NOTE | 2024-12-29 15:24 | DS.PCM_ITS ---
Providers Date of Admission: 12/28/24 Primary Care Physician: Dr. Jack De La O MD Consultations 12/28/24 07:42 Consult: Urology Routine Consulting Provider: Lew Rouse Reason for Consult: Right Pyelonephritis with ~6.5 mm Proximal Right Ureteral Stone. EMERGENT Consult: No MD Notified: Yes Date Notified: 12/28/24 Time Notified: 04:10 Method of Notification: ED Physician Initiated Reason For Visit: RT PYLENONEPHRITIS W/ RT URETERAL STONE Diagnosis Discharge Diagnosis (1) Pyelonephritis of right kidney: Status: Acute Code(s): N12 - Tubulo-interstitial nephritis, not specified as acute or chronic (2) Hydronephrosis with renal and ureteral calculous obstruction: Status: Acute Code(s): N13.2 - Hydronephrosis with renal and ureteral calculous obstruction Medications at Discharge Home Medications aspirin 81 mg chewable tablet 1 tab PO DAILY 12/28/24 atorvastatin 80 mg tablet 80 mg PO DAILY 12/28/24 amlodipine 5 mg tablet 5 mg PO DAILY 30 days #30 tabs 12/29/24 losartan 25 mg tablet 25 mg PO DAILY #30 tabs 12/29/24 Hospital Course Operations - (Cystoscopy and right stent placement retrogrades) Procedures None Summary of Care Provided Minutes Spent on Discharge: 38 Hospital Course: Per HPI: CARROLL MALONE, is a 44 M with a past medical history of essential hypertension; on losartan, hyperlipidemia; on atorvastatin, obesity; with BMI of 34.3 this admission, CAD; s/p OH with subsequent stents on baby aspirin daily, history of COVID-19 (2021) and history of renal calculi who presents to [facility] ER complaining of Right flank pain. Mr. Malone reports his symptoms began approximately 2 hours prior to arrival with the abrupt-onset of severe, ~8/10 pain in his Right flank that radiated into his back with nothing seeming to make the pain better or worse. He admits his symptoms are similar to his previous kidney stones - but this is more intense. He denies associated fever, chills, changes in vision, chest pain, palpitations, heart racing, shortness of breath, cough, abdominal pain, nausea, vomiting, dysuria, hematuria or rash. In the ER he was noted to have CT evidence of an obstructing stone in the proximal Right ureter measuring ~6.5 mm resulting in [id number] Right- sided hydronephrosis and mild proximal hydroureter with Right perinephric and periureteral stranding with a corresponding urinalysis that revealed hematuria and small leukocyte esterase with no white blood cells but with Leukocytosis of 18.9 K present on admission. He was then diagnosed with suspected Right pyelonephritis with hydronephrosis and hydroureter due to ~6.5 mm proximal Right ureteral stone and he was then admitted to the general medical floor for ongoing care for stay that is expected to extend beyond 2 midnights with urology packaging sales consultant contacted by the ER with plan for ureteral stent placement in a.m. with help appreciated in advance. Hospital Course: 1. Right obstructing ureteral stone 6.5 mm status post stent placement on 12/28/2024?44-year-old male presented to the hospital complaining of right flank pain. He did have a leukocytosis and was started on antibiotics for concern for possible pyelonephritis. Urology was consulted and took him to the OR for a cystoscopy and a right stone. He had significant improvement in symptoms immediately after the procedure and on the day of discharge his white count had improved to 11 from 18.9. Of note his urine culture which had been obtained on admission demonstrated no growth so his antibiotics were discontinued. He does have a history of some hypertension and his blood pressure medications were adjusted where his losartan was increased to 25 mg p.o. daily and he is also started on Norvasc 5 mg p.o. daily. I discussed discharge today he expressed understanding of the risks and benefits of going home and would like to go home today. 2. CAD status post stents, essential hypertension, hyperlipidemia are chronic medical conditions which complicate his care. His home medications were continued where appropriate Physical Exam Narrative General: Alert, Oriented x3, Cooperative, No apparent distress HEENT: Atraumatic, PERRLA, EOMI, Normocephalic Oral: Moist Mucosa Neck: Supple, No JVD Lungs: Clear to auscultation, Normal air movement, No rhonchi, No wheeze, No rales Cardiovascular: Regular rate, Regular Rhythm, Normal S1, Normal S2, No murmurs Abdomen: Soft, Non Tender, Non-Distended, No Hepato-splenomegaly Extremities: No edema, Capillary Refill Less than 3 Seconds Skin: No rashes, No breakdown Musculoskeletal: No Tenderness to Palpation of Joints or Extremities Neurological: No focal neurological deficits, Motor Exam 5/5 strength throughout, Sensory exam intact to light touch and pain Psych/Mental Status: Normal Affect, Appropriate Weight / BMI Weight Weight: 246 lb 11.2 oz Body Mass Index (BMI) 33.4 ABG / Lab / Microbiology Data 12/29/24 05:19 12/29/24 05:19 Laboratory: Laboratory Results - last 24 hr 12/29/24 05:19: WBC 11.8 H, RBC 4.78, Hgb 13.6, Hct 41.2, MCV 86.2, MCH 28.5, MCHC 33.0, RDW Std Deviation 41.3, RDW Coeff of Johnny 13.2, Plt Count 344, MPV 9.2, Immature Gran % (Auto) 0.500, Neut % (Auto) 80.6 H, Lymph % (Auto) 12.3 L, Beckham % (Auto) 6.4, Eos % (Auto) 0.1, Baso % (Auto) 0.1, Absolute Neuts (auto) 9.5 H, Absolute Lymphs (auto) 1.45, Nucleated RBC % 0, Sodium 140, Potassium 4.1, Chloride 106, Carbon Dioxide 24.0, Anion Gap 9, BUN 18, Creatinine 1.10, Estim Creat Clear Calc 110.88, Est GFR (MDRD) Af Amer 93, Est GFR (MDRD) Non-Af 77, BUN/Creatinine Ratio 16.4, Glucose 125 H, Calcium 9.2, Phosphorus 4.2, Magnesium 2.1, Total Bilirubin 0.50, AST 20, ALT 56, Alkaline Phosphatase 172 H, Total Protein 6.8, Albumin 3.8, Globulin 3.0, Albumin/Globulin Ratio 1.3 Microbiology: Microbiology 12/28/24 02:34 Urine, Clean Catch Urine Culture - Preliminary Culture exhibits no growth. D/C Instructions Discharge Diet: No restrictions Call your doctor if you observe: Fever of 101 or Higher, Shortness of breath, Dizziness, Fainting spells, Swelling in the ankles, Chest pain and Increased palpitations (irregular heartbeat) DC O2, CPAP, BIPAP Needs Home O2 Discharge instructions: No Please Follow Up With: Lew Rouse MD When: Call [phone] Meaningful Use Info Meaningful Use Meaningful Use Diagnoses (Choose all that apply): None applicable Ischemic Stroke Statin Dosing Therapy Reference: STATIN DOSE THERAPY REFERENCE: * Patients > 75 years receive moderate or high dose statin therapy. * Patients 75 years or YOUNGER should receive HIGH intensity statin dose unless contraindicated. You will be required to document reason for non-treatment if statin daily dose does not meet guidelines. HIGH DOSE STATIN THERAPY DAILY Atorvastatin > than or = to 40 mg Rosuvastatin > than or = to 20 mg Amlodipine + Atorvastatin > than or = to 2.5/40 mg Ezetimibe + Simvastatin 10/80 mg Simvastatin 80mg Discharge Plan Admission Admit Date/Time: 12/28/24 04:08 Primary Reason for Your Visit: RIGHT PYLENONPHRITIS WITH RIGHT URETERAL STONE Attending Provider: Tonio Manzanares Primary Care Provider: Jack De La O Consulting Providers: Lew Rouse; Gian Hyman Discharge Orders/Prescriptions Prescriptions: New amlodipine 5 mg Tablet 5 mg PO DAILY 30 Days Qty: 30 0RF Continued atorvastatin 80 mg tablet 80 mg PO DAILY aspirin 81 mg tablet,chewable 1 tab PO DAILY Changed losartan 25 mg tablet 25 mg PO DAILY Qty: 30 0RF Referrals / Follow Up: Lew Rouse MD [Med Staff - Active Staff] - Within 2 Weeks Jack De La O MD [Primary Care Provider] - Within 1 Week Disposition Disposition (needs filled in before D/C Order can be placed): Home, Self Care Charges/Coding Visit Charges Inpatient E&M: 46463 Disch Hosp >30min
== END 2024-12-29 15:30 | disposition home or self-care (01) | DRG 660 ==
LOC: ED 07:26 → MS3 07:39 → MS2 11:54
PROVIDERS: Urology; Admitting Provider Internal Medicine; Emergency Provider Emergency Medicine; PCP Family Medicine; Visit Provider Family Medicine
PROC: 0T768DZ Dilation of Right Ureter with Intraluminal Device, Via Natural or Artificial Opening Endoscopic (ICD-10-PCS; CPT 52332; principal; 2024-12-28 12:20)
DX: N13.2 Hydronephrosis with renal and ureteral calculous obstruction (principal); N13.4 Hydroureter; E66.9 Obesity, unspecified; K76.0 Fatty (change of) liver, not elsewhere classified; I10 Essential (primary) hypertension; E78.5 Hyperlipidemia, unspecified; I25.10 Atherosclerotic heart disease of native coronary artery without angina pectoris; I25.2 Old myocardial infarction; N10 Acute pyelonephritis; Z79.82 Long term (current) use of aspirin; Z95.5 Presence of coronary angioplasty implant and graft; Z68.34 Body mass index [BMI] 34.0-34.9, adult; N12 Tubulo-interstitial nephritis, not specified as acute or chronic; Z87.891 Personal history of nicotine dependence; Z79.899 Other long term (current) drug therapy
CPT/HCPCS: 36415; 74176; 76000; 80053; 81001; 83735; 84100; 84443; 85025; 87086; 93005; 94668; 99284; A4216; C2617; J2405